=== PATIENT | male | born 1940 | race Caucasian/White ===

== ENCOUNTER 2018-11-24 20:50 | Emergency (ER) | payer MEDICARE ==
[~2018-11-24 20:50] MED LIST: Haloperidol 0.5 MG Tab PO SCH
[2018-11-24] MEDS ORDERED: Haloperidol 0.5 MG Tab PO ONE ×2 (21:34→21:42)
--- NOTE | 2018-11-24 21:51 | EDM.PDOC ---
ED HPI GENERAL MEDICAL PROBLEM - General Chief Complaint: General Stated Complaint: Irrational behavior Time Seen by Provider: 11/24/18 21:34 Source of Information: Reports: Patient, EMS, EMS Notes Reviewed, Family History Limitations: Reports: No Limitations - History of Present Illness INITIAL COMMENTS - FREE TEXT/NARRATIVE: Patient is an 78-year-old gentleman who presents to emergency department via EMS for complaint of irrational behavior. Patient has bipolar personality and takes multiple medications including lithium. Per family members. He hasn't taken his medicine 3 days. Became irrational today and has not slept in 2 days. Family members state that the patient never threatened his life or anyone else's just rambling on and acting irrational. [place]. Upon presentation, patient is nonthreatening however, not compliant. After short period of time and interaction with the patient. Patient agreed to take his own medicine for me. Patient took 300 mg of lithium. Patient appeared to become more relaxed. Family members are present and stated they would be comfortable taking him back home if he more relaxed. Patient denies intent to hurt self or others. Onset: Gradual Duration: Day(s): Associated Symptoms: Reports: No Other Symptoms - Related Data Allergies Allergy/AdvReac Type Severity Reaction Status Date / Time No Known Drug Allergies Allergy Other Verified 11/24/18 21:14 Home Meds: Home Meds Aspirin [Ecotrin EC] 81 mg PO DAILY 11/24/18 [History] Benazepril [Lotensin] 20 mg PO DAILY 11/24/18 [History] [place] Carbonate 150 mg PO Q48H 11/24/18 [History] [place] Carbonate 300 mg PO Q48H 11/24/18 [History] hydrOXYzine pamoate [Hydroxyzine Pamoate] 50 mg PO BID PRN 11/24/18 [History] lamoTRIgine [Lamotrigine] 100 mg PO DAILY 11/24/18 [History] ED ROS GENERAL - Review of Systems Review Of Systems: ROS reveals no pertinent complaints other than HPI. Constitutional: Reports: No Symptoms HEENT: Reports: No Symptoms Respiratory: Reports: No Symptoms Cardiovascular: Reports: No Symptoms Endocrine: Reports: No Symptoms GI/Abdominal: Reports: No Symptoms : Reports: No Symptoms Musculoskeletal: Reports: No Symptoms Skin: Reports: No Symptoms Neurological: Reports: No Symptoms Psychiatric: Reports: Agitation, Mood Lability. Denies: Homicidal Ideation, Suicidal Ideation Hematologic/Lymphatic: Reports: No Symptoms Immunologic: Reports: No Symptoms ED EXAM, GENERAL - Physical Exam Exam: See Below Exam Limited By: No Limitations General Appearance: Alert, WD/WN, No Apparent Distress Nose: Normal Inspection, No Blood Throat/Mouth: Normal Inspection, Normal Oropharynx, No Airway Compromise Head: Atraumatic, Normocephalic Respiratory/Chest: No Respiratory Distress, Lungs Clear, Normal Breath Sounds, No Accessory Muscle Use, Chest Non-Tender Cardiovascular: Regular Rate, Rhythm, No Murmur GI/Abdominal: Normal Bowel Sounds, Soft, Non-Tender Back Exam: Normal Inspection Extremities: Normal Inspection Neurological: Alert, Oriented Psychiatric: Other (Irrational) Skin Exam: Warm, Dry, Intact, Normal Color, No Rash Course - Vital Signs Last Recorded V/S: Last Vital Signs Temp 98.0 F 11/24/18 21:20 Pulse 90 11/24/18 21:20 Resp 22 H 11/24/18 21:20 BP 152/72 H 11/24/18 21:20 Pulse Ox 94 L 11/24/18 21:20 - Orders/Labs/Meds Meds: Medications Discontinued Medications Generic Name Dose Route Start Last Admin Trade Name Freq PRN Reason Stop Dose Admin Haloperidol 1 mg 11/24/18 21:34 11/24/18 21:44 Haldol PO 11/24/18 21:35 Not Given ONETIME ONE Haloperidol 1 mg 11/24/18 21:42 11/24/18 21:40 Haldol PO 11/24/18 21:43 1 mg ONETIME ONE Administration - Re-Assessments/Exams Free Text/Narrative Re-Assessment/Exam: 11/24/18 22:08 Patient afebrile, nontoxic appearing, vital signs stable. Patient given 1 mg of Haldol PO in ER. No lab work initiated in emergency Department secondary to patient refusal. Patient became very compliant after Haldol. Patient's family was comfortable taking patient home and states that last time when he got enough sleep He woke up a new man. Patient states he will continue to take prescriptions appropriately and will return to the ER if symptoms continue. 11/24/18 22:13 Departure - Departure Time of Disposition: 22:12 Disposition: Home, Self-Care 01 Condition: Good Clinical Impression: Bipolar 1 disorder - Discharge Information Instructions: Living With Bipolar Disorder, Bipolar 1 Disorder Additional Instructions: Follow-up with mental health. Take medication [facility] - Assessment/Plan Assessment:: Bipolar Plan: Follow-up as scheduled with mental health
== END 2018-11-24 22:15 | disposition home or self-care (01) ==
LOC: KA.ED 20:50
DX: F31.9 Bipolar disorder, unspecified (principal); Z79.82 Long term (current) use of aspirin; Z79.899 Other long term (current) drug therapy
CPT/HCPCS: 99285; A9270